=== PATIENT | female | born 2000 | race Caucasian/White ===

== ENCOUNTER → 2020-12-08 16:58 | Outpatient (CLI) | payer OTHER, MEDICAID, SELFPAY ==
[2020-12-08 18:15] LABS: Add Manual Diff / Slide Review NO; Basophils Absolute Auto 0 /uL (0-100); Basophils Percent Auto 0.6 % (0-2); Eosinophils Absolute Auto 0 /uL (0-450); Eosinophils Percent Auto 0.5 % (2-4); Hematocrit 37.9 % (36-46); Hemoglobin 12.6 g/dL (12.0-16.0); Lymphocytes Absolute Auto 1400 /uL (1100-4500); Lymphocytes Percent Auto 28.3 % (25-40); Mean Corpuscular HGB Conc 33.3 % (30-36); Mean Corpuscular Hemoglobin 26.8 PG (26-34); Mean Corpuscular Volume 80.5 fL (80-100); Monocytes Absolute Auto 400 /uL (0-900); Monocytes Percent Auto 7.2 % (3-14); Neutrophils Absolute Auto 3200 /uL (1500-7000); Neutrophils Percent Auto 63.4 % (50-75); Platelet Count 217 X10^3/uL (150-400); Red Blood Cell Count 4.71 X10^6/uL (4.0-5.2); Red Cell Distribution Width 15.2 % (11.6-14.8); White Blood Cell Count 5.1 X10^3/uL (4.5-11.0)
[2020-12-08 18:34] LABS: Alanine Aminotransferase 14 IU/L (<35); Albumin 4.7 g/dL (3.5-5.0); Albumin Globulin Ratio 1.6 (1.0-2.8); Alkaline Phosphatase 80 U/L (38-126); Aspartate Aminotransferase 21 IU/L (14-36); BUN Creatinine Ratio 18.4 (6-22); Bilirubin Total 0.4 mg/dL (0.2-1.3); Blood Urea Nitrogen 14 mg/dL (7-17); Calcium 9.6 mg/dL (8.4-10.2); Carbon Dioxide 23 mmol/L (22-32); Chloride 104 mmol/L (98-107); Estimated Glomerular Filt Rate > 60.0 mL/min (>60); Glucose 77 mg/dL (70-100); HEMOLYSIS < 15 (0-50); Magnesium 1.9 mg/dL (1.6-2.3); Phosphorous 3.9 mg/dL (4.5-5.5); Sodium 137 mmol/L (137-145); Total Protein 7.7 g/dL (6.3-8.2)
[2020-12-08 18:53] LABS: Vitamin D 25 Hydroxy (D3) 31.2 ng/mL (30.0-100.0)
== END ==
PROVIDERS: PCP Family Medicine; Referring Provider Family Medicine; Visit Provider Family Medicine
DX: F50.00 Anorexia nervosa, unspecified (principal)
CPT/HCPCS: 36415; 80053; 82306; 83735; 84100; 84443; 85025

== ENCOUNTER → 2022-07-22 09:08 | Outpatient (CLI) | payer OTHER, MEDICAID, SELFPAY | PROVIDERS: PCP Family Medicine; Visit Provider Physician Assistant | DX: J02.9 Acute pharyngitis, unspecified (principal) | CPT/HCPCS: 87070 ==

== ENCOUNTER → 2022-09-28 15:24 | Outpatient (CLI) | payer OTHER, MEDICAID, SELFPAY | PROVIDERS: PCP Family Medicine; Visit Provider Physician Assistant | DX: R35.0 Frequency of micturition (principal) | CPT/HCPCS: 81002; 87086 ==

== ENCOUNTER → 2022-10-04 12:46 | Outpatient (CLI) | payer OTHER, MEDICAID, SELFPAY ==
[2022-10-04 15:07] LABS: Appearance Urine UA CLEAR; Bilirubin Urine UA NEGATIVE (NEGATIVE); Color Urine UA YELLOW; Glucose Urine UA NEGATIVE (Negative); Ketones Urine UA NEGATIVE (NEGATIVE); Leukocyte Esterase Urine UA TRACE (NEGATIVE); Nitrite Urine UA NEGATIVE (Negative); Occult Blood Urine UA NEGATIVE (Negative); Protein Urine UA TRACE (Negative); Specific Gravity Urine UA 1.025 (1.000-1.035)
[2022-10-04 15:08] LABS: pH Urine UA 5.5 (4.5-8.0)
[2022-10-04 15:16] LABS: Bacteria Urine Few (2-10); Culture Indicated Urine Specimen Cultured; Mucus Urine 2+ (Negative); RBC Urine 1-5/HPF (0-5/HPF); Squamous Epithelial Cell Urine 1-5 /HPF (0-5/HPF); WBC Urine 5-10/HPF (0-5/HPF)
== END ==
PROVIDERS: PCP Family Medicine; Referring Provider Physician Assistant; Visit Provider Physician Assistant
DX: R30.0 Dysuria (principal)
CPT/HCPCS: 81001; 87086

== ENCOUNTER → 2023-08-29 17:15 | Outpatient (CLI) | payer OTHER, SELFPAY ==
[2023-08-29 17:53] LABS: Add Manual Diff / Slide Review NO; Basophils Absolute Auto 0 /uL (0-100); Basophils Percent Auto 0.3 % (0-2); Eosinophils Absolute Auto 0 /uL (0-450); Eosinophils Percent Auto 0.6 % (2-4); Hematocrit 33.1 % (36-46); Hemoglobin 11.3 g/dL (12.0-16.0); Lymphocytes Absolute Auto 1700 /uL (1100-4500); Lymphocytes Percent Auto 24.7 % (25-40); Mean Corpuscular HGB Conc 34.1 % (30-36); Mean Corpuscular Hemoglobin 27.7 PG (26-34); Mean Corpuscular Volume 81.1 fL (80-100); Monocytes Absolute Auto 500 /uL (0-900); Monocytes Percent Auto 7.8 % (3-14); Neutrophils Absolute Auto 4500 /uL (1500-7000); Neutrophils Percent Auto 66.6 % (50-75); Platelet Count 227 X10^3/uL (150-400); Red Blood Cell Count 4.08 X10^6/uL (4.0-5.2); White Blood Cell Count 6.8 X10^3/uL (4.5-11.0)
[2023-08-29 18:02] LABS: Appearance Urine UA CLEAR; Bilirubin Urine UA NEGATIVE (NEGATIVE); Color Urine UA YELLOW; Glucose Urine UA NEGATIVE (Negative); Ketones Urine UA NEGATIVE (NEGATIVE); Leukocyte Esterase Urine UA TRACE (NEGATIVE); Nitrite Urine UA NEGATIVE (Negative); Occult Blood Urine UA NEGATIVE (Negative); Protein Urine UA NEGATIVE (Negative); Urobilinogen Urine UA 0.2 E.U./dL (0.2)
[2023-08-29 18:10] LABS: Bacteria Urine Occasional (0-1); Culture Indicated Urine Cult Not Indicated; RBC Urine 0-1/HPF (0-5/HPF); Squamous Epithelial Cell Urine 0-1 /HPF (0-5/HPF); Urine Volume 10mL (spun); WBC Urine 0-1/HPF (0-5/HPF)
[2023-08-30 15:52] LABS: Hepatitis B Surface Antigen NEGATIVE s/c (NEGATIVE)
[2023-08-30 15:57] LABS: HIV 1 & 2 Ab/Ag 4th Gen Combo NEGATIVE (NEGATIVE); Hep C Virus Ab w/Reflex Quant NEGATIVE s/c (NEGATIVE)
[2023-08-31 03:10] LABS: RPR Screen Non Reactive (Non Reactive)
[2023-08-31 09:50] LABS: Varicella IgG Antibody 305 index (Immune >165)
== END ==
PROVIDERS: PCP Family Medicine; Referring Provider Family Medicine; Visit Provider Family Medicine
DX: Z34.00 Encounter for supervision of normal first pregnancy, unspecified trimester (principal)
CPT/HCPCS: 36415; 80055; 81003; 81015; 86787; 86803; 86850; 86900; 86901; 87086; 87389

== ENCOUNTER → 2023-09-21 16:44 | Outpatient (CLI) | payer OTHER, SELFPAY | PROVIDERS: PCP Family Medicine; Referring Provider Family Medicine; Visit Provider Family Medicine | DX: Z34.02 Encounter for supervision of normal first pregnancy, second trimester (principal) | CPT/HCPCS: 36415 ==

== ENCOUNTER → 2023-11-23 14:43 | Outpatient (CLI) | payer OTHER, SELFPAY ==
--- NOTE | 2023-11-23 14:43 | DI.US.S_ITS ---
PROCEDURE: US OB >= 14 WEEKS FETUS INDICATIONS: 20 wk anatomy scan OUTSIDE/PRIOR DATING DATA: Last menstrual period (LMP): 06/16/2023. LMP-based estimated date of delivery (MOUNA): 03/22/2024. First dating scan (date and location): 08/21/2023. Estimated date of delivery (MOUNA) from first dating scan: 03/22/2024. TECHNIQUE: Real-time scanning was performed of the fetus, with image documentation and biometric measurements. Endovaginal scanning: Not performed COMPARISON: None. FINDINGS: General: A single living intrauterine gestation is present. Presentation: Breech. Placenta: Placental position is fundal , without previa. Amniotic fluid index: 15.3 cm, normal range is 5-24 cm. Single deepest vertical pocket is 4.8 cm. heart rate: 137 beats per minute. Maternal cervical canal: 3.6 cm long. Normal lower limit is 2.5 cm. biometrics: Biparietal diameter: 5.4 cm, 22 weeks 4 days Head circumference: 20.9 cm, 23 weeks 0 days Abdominal circumference: 19.2 cm, 23 weeks 6 days Femur length: 3.8 cm, 22 weeks 0 days Clinically estimated gestational age: 22 weeks 6 days Composite gestational age from present scan: 22 weeks 6 days Estimated weight and percentile: 559 g, 53rd percentile Anatomic survey: Neuro: Ventricles are non-dilated at less than 10 mm. Cisterna magna is normal at 3-11 mm. Cerebellum is normal in size and morphology. Nuchal skin fold: Normal at less than 6 mm between 14-21 weeks gestational age. Face: Nose and lips, facial profile are normal. Spine: No evidence for spina bifida. Heart: 4-chambered heart is present, with normal ventricular outflow tracts. Diaphragm: Diaphragm is intact. Stomach: Left-sided stomach is present. Kidneys: No hydronephrosis. Normal is less than 5 mm in 2nd trimester, less than 7 mm in 3rd trimester. Cord: 3-vessel cord has orthotopic insertion. Bladder: Normal in size. Extremities: All 4 extremities identified. IMPRESSION: Single living intrauterine at 22 weeks 6 days, MOUNA 03/22/2024. Estimated weight of 559 g, 53rd percentile. Normal anatomy survey. We strive to produce accurate, complete, and clear reports of imaging services. To assist us in improving patient care, this report was composed using standard report templates and voice recognition software. Therefore, it may contain abnormal punctuation, insertions and/or omissions. Occasional wrong-word or sound-alike substitutions may occur. Though we review the report and make efforts to correct it, we do recommend that the report be read carefully in proper context to recognize any text inaccuracies. Dictated by: Noe Hawk M.D. on 11/23/2023 at 16:53 Approved by: Noe Hawk M.D. on 11/23/2023 at 16:55
== END ==
PROVIDERS: PCP Family Medicine; Referring Provider Family Medicine; Visit Provider Family Medicine
DX: Z34.02 Encounter for supervision of normal first pregnancy, second trimester (principal); Z3A.22 22 weeks gestation of pregnancy
CPT/HCPCS: 76811

== ENCOUNTER → 2023-12-08 11:11 | Outpatient (CLI) | payer OTHER, SELFPAY ==
[2023-12-08 12:35] LABS: Add Manual Diff / Slide Review NO; Basophils Absolute Auto 0 /uL (0-100); Basophils Percent Auto 0.1 % (0-2); Eosinophils Absolute Auto 0 /uL (0-450); Eosinophils Percent Auto 0.3 % (2-4); Hematocrit 28.3 % (36-46); Hemoglobin 9.5 g/dL (12.0-16.0); Lymphocytes Absolute Auto 1000 /uL (1100-4500); Lymphocytes Percent Auto 12.9 % (25-40); Mean Corpuscular HGB Conc 33.7 % (30-36); Mean Corpuscular Hemoglobin 26.8 PG (26-34); Mean Corpuscular Volume 79.7 fL (80-100); Monocytes Absolute Auto 300 /uL (0-900); Monocytes Percent Auto 4.3 % (3-14); Neutrophils Absolute Auto 6500 /uL (1500-7000); Neutrophils Percent Auto 82.4 % (50-75); Platelet Count 216 X10^3/uL (150-400); Red Blood Cell Count 3.56 X10^6/uL (4.0-5.2); Red Cell Distribution Width 13.7 % (11.6-14.8); White Blood Cell Count 7.9 X10^3/uL (4.5-11.0)
[2023-12-08 12:49] LABS: GTT (PREG) 1 Hour PP 50gm Dose 135 mg/dL (76-139)
== END ==
PROVIDERS: PCP Family Medicine; Referring Provider Family Medicine; Visit Provider Family Medicine
DX: Z34.90 Encounter for supervision of normal pregnancy, unspecified, unspecified trimester (principal); Z3A.28 28 weeks gestation of pregnancy
CPT/HCPCS: 36415; 82950; 85025

== ENCOUNTER → 2024-02-21 08:45 | Outpatient (CLI) | payer OTHER, SELFPAY ==
[2024-02-22 10:38] LABS: Strep Grp B PCR NEG for Grp B Strep
== END ==
PROVIDERS: PCP Family Medicine; Visit Provider Family Medicine
DX: Z34.03 Encounter for supervision of normal first pregnancy, third trimester (principal); Z36.85 Encounter for antenatal screening for Streptococcus B; Z3A.36 36 weeks gestation of pregnancy
CPT/HCPCS: 87653

== ENCOUNTER 2024-03-08 14:53 | Inpatient (IN) | payer OTHER, SELFPAY ==
--- NOTE | 2024-03-08 15:20 | DI.US.S_ITS ---
PROCEDURE: US OB LIMITED INDICATIONS: non reactive NST OUTSIDE/PRIOR DATING DATA: Last menstrual period (LMP): 06/16/2023. LMP-based estimated date of delivery (MOUNA): 03/22/2024. First dating scan (date and location): 08/21/2023. Estimated date of delivery (MOUNA) from first dating scan: 03/22/2024. The calculations are made using the working MOUNA of 03/22/2024. TECHNIQUE: Real-time scanning was performed of the fetus, with image documentation. Endovaginal scanning: No COMPARISON: None. FINDINGS: A single living intrauterine gestation is present. Presentation: Vertex. Placenta: Placental position is posterior, without previa. Amniotic fluid index: 10.7 cm, normal range is 5-24 cm. Single deepest vertical pocket is 3.9 cm. heart rate: 140 beats per minute. Maternal cervical canal: Nonvisualized Clinically estimated gestational age: 38 week 0 day Estimated gestational age from initial scan: 38 week 0 day Biophysical profile score: tone, movement and amniotic fluid pockets are all graded 2 out of 2. Respiratory motion grade 0 out of 2. No respiratory motion was observed during the exam . IMPRESSION: Single live intrauterine consistent with 38 week 0 day gestation. Biophysical profile score 6 out of 8 Approved by: Torsten Astorga M.D. on 03/08/2024 at 16:45
[2024-03-08 15:42] LABS: Add Manual Diff / Slide Review NO; Basophils Absolute Auto 0 /uL (0-100); Basophils Percent Auto 0.4 % (0-2); Eosinophils Absolute Auto 0 /uL (0-450); Eosinophils Percent Auto 0.3 % (2-4); Hematocrit 34.2 % (36-46); Lymphocytes Absolute Auto 1300 /uL (1100-4500); Lymphocytes Percent Auto 18.2 % (25-40); Mean Corpuscular HGB Conc 32.3 % (30-36); Mean Corpuscular Hemoglobin 24.9 PG (26-34); Mean Corpuscular Volume 77.2 fL (80-100); Monocytes Absolute Auto 700 /uL (0-900); Monocytes Percent Auto 9.6 % (3-14); Neutrophils Absolute Auto 5000 /uL (1500-7000); Neutrophils Percent Auto 71.5 % (50-75); Platelet Count 237 X10^3/uL (150-400); Red Blood Cell Count 4.43 X10^6/uL (4.0-5.2); Red Cell Distribution Width 17.2 % (11.6-14.8)
--- NOTE | 2024-03-08 16:38 | PM.OBHP.IH.1 ---
OB HPI Date/Time Date of admission: 03/08/24 Date Patient Seen: 03/08/24 History of Present Condition Chief complaint: NST Date of Last Menstrual Period: 06/16/23 MOUNA Calculator Estimated Delivery Date Method Current WG Current Estimate 03/22/24 LMP (Certain) 38w 0d Estimated Gestational Age (weeks): 38+0 : 1 Para: 0 Narrative: 23-year-old at [place] 38+0 weeks presenting for decreased movement. Woke up feeling nauseous with intermittent hot flashes this morning. Last filled baby move around 8:30 a.m. had breakfast including eggs around 930. Called triage line and was advised to drink some juice, rest, and performed kick counts. Did not notice significant movement after 1 hour so proceeded to L & D for further evaluation. Denies vaginal bleeding or leakage of fluid. Antepartum course notable for congenital encephalocele (surgically repaired age 1), anemia (on p.o. iron), anxiety (on fluoxetine and buspirone). care: good care Dating criteria OB: LMP confirmed by 1st trimester US Ultrasounds: normal 1st trimester US and normal mid trimester US Obstetrical complications: none Medical complications OB: psychiatric (anxiety) and other (anemia) Indications Operative indications ( section): distress (decreased FM, nrFHT w/recurrent late decelerations on NST) Preadmission Labs Last OB Lab Results: Blood Type AB Positive 03/08/24 15:30 Antibody Screen Negative 03/08/24 15:30 Hct 34.2 % (36-46) L 03/08/24 15:30 Hgb 11.0 g/dL (12.0-16.0) L 03/08/24 15:30 Hep Bs Antigen Negative s/c (NEGATIVE) 08/29/23 17:24 Hepatitis C Antibody Negative s/c (NEGATIVE) 08/29/23 17:24 Rubella Antibody 15.0 IU/mL (>15) 08/29/23 17:24 VZV IgG Antibody 305 index (Immune >165) 08/29/23 17:24 Glucose 1 Hr 50 gm 135 mg/dL (76-139) 12/08/23 11:25 Group B Strep (PCR) Neg for grp b strep 02/21/24 08:45 Genetic Screens: Cell-free DNA: Normal Evaluation Evaluation Baseline heart rate: 135 Variability: Minimal (3-5) monitor accelerations: Absent Monitor Decelerations: Late Contraction Frequency (minutes): 3 Uterine Contraction Intensity: Mild Category of Tracing: Non-reactive Status: Category ll Dilation (cm): 0 Effacement (%): 40 station: -1 Position of cervix: posterior Comments: Exam per L&D RN [facility] Medical History (Updated 12/14/23 @ 16:18 by Tevin Ya MD) Strabismus (00) Molluscum contagiosum Encephalocele Anorexia nervosa Surgical History (Updated 07/25/23 @ 15:38 by Jessenia Hernandez RN) [place] teeth extracted History of eye surgery Family History (Updated 07/25/23 @ 15:42 by Jessenia Hernandez RN) Father Type II diabetes mellitus Mother Skin cancer Grandmother Traumatic brain injury Uncle Alcoholism Aunt Drug abuse Sepsis Social History marital status: unmarried,living together number of children: 0 household members: significant other and family lives independently: Yes caregiver/support person: No housing: house pets and animals: Yes (2 dogs, 1 cat; aware of precautions) education level: college occupational status: employed current occupational exposures/hazards: No special tommie needs: No travel history: recent seatbelt use: always water heater temp set < 120 deg: Yes working smoke detector in home: Yes fire extinguisher in home: Yes carbon monox detector in home: Yes firearms in home: No do you feel safe at home: Yes Smoking Status: Never smoker second hand exposure: No alcohol intake: former substance use type: does not use during the past year weight has: remained stable well-balanced diet: about half the time daily servings fruits/ve-4 caffeine: Yes (AM coffee, aware of 200mg limit) Type(s) of exercise: other Meds Home Medications and Allergies Home Medications Medication Instructions Recorded Confirmed Type buspirone 10 mg tablet 10 mg PO BID #60 tabs 03/06/23 02/21/24 Rx vitamin-ferrous sulfate tab PO 07/25/23 02/21/24 History 27 mg iron-folic acid 0.8 mg tablet folic acid 1 mg tablet 4 mg (4 x 1 mg) PO DAILY #120 tabs 07/30/23 02/21/24 Rx ferrous sulfate 325 mg (65 mg 325 mg PO DAILY #30 tabs 12/14/23 02/21/24 Rx iron) tablet,delayed release fluoxetine 20 mg capsule 20 mg PO DAILY #30 caps 02/14/24 02/21/24 Rx Allergies Allergy/AdvReac Type Severity Reaction Status Date / Time cranberry Allergy Intermediate Rash Verified 02/27/24 07:54 grapefruit [GRAPEFRUIT] Allergy Intermediate rash Verified 02/27/24 07:54 OB Exam Narrative Exam Narrative: General: Well-nourished, no distress HEENT: NC/AT, EOMI, moist mucous membranes CV: RRR, normal S1 S2, no m/g/r Resp: CTAB Abd: Gravid, soft, NTND, +BS Ext: Full ROM, no edema Skin: No rash or lesions Neuro: A&O x3, normal tone, no focal deficits Objective Labs 03/08/24 15:30 Labs: Laboratory Results - last 24 hr 03/08/24 15:30 WBC 7.0 RBC 4.43 Hgb 11.0 L Hct 34.2 L MCV 77.2 L MCH 24.9 L MCHC 32.3 RDW 17.2 H Plt Count 237 Neut % (Auto) 71.5 Lymph % (Auto) 18.2 L [place] % (Auto) 9.6 Eos % (Auto) 0.3 L Baso % (Auto) 0.4 Neut # (Auto) 5000 Lymph # (Auto) 1300 [place] # (Auto) 700 Eos # (Auto) 0 Baso # (Auto) 0 Blood Type AB Positive Antibody Screen Negative Assessment and Plan Assessment and Plan Assessment and Plan narrative: 23-year-old at [place] 38+0 weeks presenting for decreased movement. BPP equivocal (09/09, points off for breathing and non-reactive NST). Given term gestation and nrFHT/equivocal BPP with pt remote from delivery, it was recommended to deliver baby today via rather than risk complication by waiting or attempting IOL. -admit to L&D -consented for delivery -PPH risk low -SCDs with spinal Consent form for section was reviewed with the patient. Risk of reaction to medication or anesthesia, risk of bleeding enough to require blood transfusion which she is agreeable to, risk of infection, risk of damage to internal structures such as bowel, bladder, ureters that could require additional surgery to repair. Consent form signed and questions answered. Pre-op instructions reviewed. Precautions reviewed. Time-Based Coding :: 30 minutes spent with patient and on the chart (including review of chart, obtaining history, exam, reviewing outside data, placing orders, documenting exam and treatment plan, and counseling patient) on 03/08/2024.
[2024-03-08 17:37] VITALS: BP 128/79
[2024-03-08] MEDS: CEFAZOLIN 2 GM/100 ML PREMIX 100 ML IV (17:42)
--- NOTE | 2024-03-08 17:55 | SUR.OPER ---
Supine on Padded OR bed, head on pillow, safety belt at thigh, arms secured on padded arm boards at <90 degrees abduction. Bump under right buttock. Legs uncrossed with pillow under knees, gel pad to heels, tape over blanket to lower legs.
[2024-03-08] MEDS: OXYTOCIN PREMIX 30 UNIT/500 ML PLAST..BAG IV (17:59)
[2024-03-08] MEDS: OXYTOCIN 10 UNIT/ML VIAL IM (18:12)
[2024-03-08 18:44] VITALS: BP 105/67; PULSE 58; RESP 12; TEMP 35.9; O2SAT 100
[2024-03-08 18:49] VITALS: BP 105/68; PULSE 57; RESP 17; O2SAT 100
[2024-03-08 18:56] VITALS: BP 107/72; PULSE 60; RESP 12; O2SAT 100
[2024-03-08] MEDS: ACETAMINOPHEN IV 1,000 MG/100 ML VIAL 400 MG IV (18:57)
[2024-03-08] MEDS: ONDANSETRON 4 MG/2 ML INJ IV (18:57)
[2024-03-08 19:01] VITALS: BP 100/66; PULSE 57; RESP 10; TEMP 35.9; O2SAT 100
--- NOTE | 2024-03-08 19:44 | PM.OBCS.1 ---
Operative Date/Time/Diagnoses Date of procedure: 03/08/24 Pre-op diagnosis: Term , non-reassuring heart tracing Post-op diagnosis: same (delivered) Procedure & Clinicians Procedure: Primary low transverse section Same procedure as scheduled: Yes Indications: Non-reassuring heart tracing remote from delivery Surgeon: Tevin Ya Click Yes if Unassisted: No Financial Project Manager: Rica Meza Reason for Financial Project Manager: Financial Project Manager required for the safe, effective, and timely completion of this surgery. The home care assistant was necessary to retract upon entry into the abdomen and uterus. Assisted with delivery of the with fundal pressure. Assisted with closure with retraction, clipping of suture, and closure of the contralateral fascia. Anesthesia Type: Spinal Operative Notes Findings: Viable male infant in cephalic presentation Closure Type: primary Specimen(s): cord blood Intraoperative meds administered: Duramorph, Ketorolac and Pitocin Estimated Blood Loss (mL): 800 Blood products transfused: none Procedure in detail: Patient was taken to the operating room where spinal anesthesia was found to be adequate. She was then prepared and draped in the usual sterile fashion in the dorsal supine position with a leftward tilt. A Pfannenstiel incision was then made with a scalpel and carried through to the underlying layer of fascia sharply. The fascia was nicked in the midline, and the incision extended laterally with Quach scissors. The superior aspect of the fascial incision was then grasped with Caleb clamps, elevated, and the underlying rectus muscles dissected off bluntly. Attention was then turned to the inferior aspect of the incision which, in similar fashion, was grasped, tented up with Caleb clamps, and rectus muscles dissected off bluntly. The rectus muscles were then in the midline, and peritoneum identified, tented up, and entered bluntly. The peritoneal opening was then extended superiorly and inferiorly with good visualization of the bladder. The bladder blade was then inserted and the lower uterine segment incised in a transverse fashion with the scalpel. The uterine incision was then extended laterally with blunt traction. Upon entering the amniotic sac there was moderate amount of meconium-stained amniotic fluid. The bladder blade was removed and the head delivered atraumatically. The nose and mouth were suctioned with bulb suction, and the remainder of the body delivered without difficulty. The cord was clamped and cut, and the infant was handed off to the waiting care team. Cord blood was collected and sent. The placenta was then removed by manual expression; the uterus was exteriorized and cleared of all clots and debris. The uterine incision was repaired with 0 Vicryl in a running, locked fashion. A second layer of same suture was used to obtain excellent hemostasis. Tubes and ovaries were examined and were found to be normal, and the uterus returned to the abdomen. The fascia was reapproximated with 0 Vicryl in a running fashion. The subcutaneous layer was copiously irrigated with warm normal saline. The subcutaneous fat was reapproximated with 3-0 Vicryl. The skin was closed with 3-0 Monocryl. Steri-Strips were applied to the incision and a pressure dressing was placed. The uterus was expressed of a small amount of old blood. Sponge, lap, and needle counts were correct x2. The patient tolerated the procedure well and was taken to the recovery room in stable condition. Complications: none [place] Baby 1: Delivery Date: 03/08/24 Delivery Time: 17:58 Infant Gender: Male Presentation: vertex Position: Right Occiput Transverse Details: back down Placental Delivery Description: Expressed Cord Vessel Description: 3 Vessels score (1 min): 2 score (5 min): 5 score (10 min): 7 weight: 6 lb 9.116 oz Post-operative Condition: stable Disposition: PACU Aftercare: routine postop
[2024-03-08] MEDS: diphenhydrAMINE 50 MG/ML VIAL 25 MG IV (22:19)
[2024-03-09] MEDS: KETOROLAC 30 MG/ML VIAL IV ×3 (00:33→12:39)
[2024-03-09 05:40] LABS: Add Manual Diff / Slide Review NO; Basophils Absolute Auto 0 /uL (0-100); Basophils Percent Auto 0.1 % (0-2); Eosinophils Absolute Auto 0 /uL (0-450); Hematocrit 29.9 % (36-46); Hemoglobin 9.8 g/dL (12.0-16.0); Lymphocytes Absolute Auto 700 /uL (1100-4500); Lymphocytes Percent Auto 5.7 % (25-40); Mean Corpuscular HGB Conc 32.9 % (30-36); Mean Corpuscular Hemoglobin 25.3 PG (26-34); Monocytes Absolute Auto 500 /uL (0-900); Monocytes Percent Auto 4.3 % (3-14); Neutrophils Absolute Auto 10700 /uL (1500-7000); Neutrophils Percent Auto 89.9 % (50-75); Platelet Count 233 X10^3/uL (150-400); Red Blood Cell Count 3.88 X10^6/uL (4.0-5.2); Red Cell Distribution Width 16.6 % (11.6-14.8); White Blood Cell Count 11.9 X10^3/uL (4.5-11.0)
[2024-03-09] MEDS: PRENATAL VIT,CALC/IRON/FOLIC 1 TABLET 1 TAB PO (09:20)
--- NOTE | 2024-03-09 12:55 | P.PNOB_ITS ---
Subjective - OB Subjective Patient comments: no complaints, pain well controlled and tolerating diet baby status: doing well and nursing well feeding status: exclusively breast feeding Date Patient Seen: 03/09/24 Time Patient Seen: 12:56 Exam Vital Signs (past 8 hours): Oxygen Delivery Method Room Air Narrative Exam Narrative: General: Well-appearing, well-nourished, no distress HEENT: Moist mucous membranes, no pallor CV: Regular rate and rhythm, no murmur auscultated Resp: CTAB, comfortable work of breathing Abdomen: Soft, bowel sounds present, fundus firm below umbilicus with appropriate tenderness, incision c/d/i Extremities: No edema, no calf tenderness or evidence of DVT Objective Labs 03/09/24 05:25 Labs: Laboratory Results - last 24 hr 03/08/24 03/09/24 15:30 05:25 WBC 7.0 11.9 H D RBC 4.43 3.88 L Hgb 11.0 L 9.8 L Hct 34.2 L 29.9 L MCV 77.2 L 77.0 L MCH 24.9 L 25.3 L MCHC 32.3 32.9 RDW 17.2 H 16.6 H Plt Count 237 233 Neut % (Auto) 71.5 89.9 H Lymph % (Auto) 18.2 L 5.7 L [place] % (Auto) 9.6 4.3 Eos % (Auto) 0.3 L 0.0 L Baso % (Auto) 0.4 0.1 Neut # (Auto) 5000 36176 H Lymph # (Auto) 1300 700 L [place] # (Auto) 700 500 Eos # (Auto) 0 0 Baso # (Auto) 0 0 Blood Type AB Positive Antibody Screen Negative Assessment & Plan Assessment and Plan (1) delivery delivered: Status: Acute (2) Anemia affecting : Status: Acute Plan day: 1 plan OB: routine postop care Comments: POD #1 s/p pLTCS Clinically stable, recovering well Start p.o. iron supplement for anemia Pain management as needed support s/p consult Encourage ambulation, flatus/BM prior to discharge Bleeding normal for course, monitor Likely discharge home POD #2 Time-Based Coding :: 20 minutes spent with patient and on the chart (including review of chart, obtaining history, exam, reviewing outside data, placing orders, documenting exam and treatment plan, and counseling patient) on 03/09/2024.
[2024-03-09] MEDS: IBUPROFEN 600 MG TABLET PO (19:18)
--- NOTE | 2024-03-09 22:25 | PM.OBDS.1 ---
Discharge Providers Provider Date of admission: 03/08/24 14:53 Discharge Date: 03/09/24 Primary care physician: Tevin Ya MD Consults: 03/08/24 19:14 Consult to Instructor Tap Dancing Routine Comment: Discharge provider: Tevin Ya MD Summary Hospital Course Date Patient Seen: 03/09/24 Time Patient Seen: 22:29 Diagnoses: #term #non-reassuring heart tracing # delivery delivered # mother Hospital Course: Admitted for urgent due to decreased movement and non-reassuring heart tracing on 03/08/2024. She had an uncomplicated CS of a live male . Her course was uncomplicated. She was discharged early due to requiring transfer higher level of care for persistent hypoglycemia and desire to travel with . At discharge patient is ambulating well, tolerating normal diet, breast-feeding with some difficulty due to uncoordinated suck, and pain is adequately controlled. She reports bleeding is similar to normal menses. Peripartum Data Infant Delivery Method: Emergency Section complications: none 1: Gender: Male Disposition of : NICU Discharge Diagnosis (1) delivery delivered: Status: Acute (2) Anemia affecting : Status: Acute (3) Anxiety during : Status: Acute Status at Discharge Cognitive/behavioral status at discharge: oriented Functional status at discharge: independent ambulation Overall status at discharge: patient is progressing back to baseline Time Spent with Patient Time attestation: Total time spent providing and/or coordinating discharge services: 20 minutes Objective Labs 03/09/24 05:25 Labs: Laboratory Results - last 24 hr 03/09/24 05:25 WBC 11.9 H D RBC 3.88 L Hgb 9.8 L Hct 29.9 L MCV 77.0 L MCH 25.3 L MCHC 32.9 RDW 16.6 H Plt Count 233 Neut % (Auto) 89.9 H Lymph % (Auto) 5.7 L [place] % (Auto) 4.3 Eos % (Auto) 0.0 L Baso % (Auto) 0.1 Neut # (Auto) 14921 H Lymph # (Auto) 700 L [place] # (Auto) 500 Eos # (Auto) 0 Baso # (Auto) 0 Exam Vital Signs (past 8 hours): Oxygen Delivery Method Room Air Narrative Exam Narrative: General: Well-appearing, well-nourished, no distress HEENT: Moist mucous membranes, no pallor CV: Regular rate and rhythm, no murmur auscultated Resp: CTAB, comfortable work of breathing Abdomen: Soft, bowel sounds present, fundus firm below umbilicus with appropriate tenderness, incision c/d/i Extremities: No edema, no calf tenderness or evidence of DVT Discharge Plan Discharge Plan Patient Disposition: Home Provider Discharge Comment: Follow-up in 1 week for incision check Discharge orders & Medications Prescriptions: New acetaminophen 325 mg capsule 650 mg PO Q6H PRN (Reason: pain) Qty: 90 1RF ibuprofen 600 mg Tablet 600 mg PO Q6H PRN (Reason: pain) Qty: 60 1RF oxycodone 5 mg Tablet 5 mg PO Q6H PRN (Reason: Pain, Moderate (4-6)) Qty: 15 0RF polyethylene glycol 3350 17 gram/dose powder 17 g PO DAILY Qty: 510 1RF Continued ferrous sulfate 325 mg (65 mg iron) tablet,delayed release (DR/EC) 325 mg PO DAILY Qty: 30 3RF fluoxetine 20 mg capsule 20 mg PO DAILY Qty: 30 3RF buspirone 10 mg tablet 10 mg PO BID Qty: 60 1RF folic acid 1 mg tablet 4 mg PO DAILY Qty: 120 5RF vit-ferrous sulfat-FA 27 mg iron- 0.8 mg tablet PO Follow up/Referrals: Tevin Ya MD [Primary Care Provider] - Visit Report/Discharge Packet Instructions: DI for Hemorrhage Stand Alone Forms: Discharge: Care, Discharge: Care, Patient Portal/API, Stroke Signs & Symptoms Discharge Data Primary Care Provider: Tevin Ya
== END 2024-03-09 23:52 | disposition home or self-care (01) | DRG 788 ==
PROVIDERS: Obstetrics & Gynecology; Admitting Provider Family Medicine; PCP Family Medicine; Referring Provider Family Medicine; Visit Provider Family Medicine
PROC: 10D00Z1 Extraction of Products of Conception, Low, Open Approach (ICD-10-PCS; CPT 59514; principal; 2024-03-08 16:45)
DX: O76 Abnormality in fetal heart rate and rhythm complicating labor and delivery (principal); Z3A.38 38 weeks gestation of pregnancy; Z37.0 Single live birth
CPT/HCPCS: 36415; 59025; 59050; 59510; 59514; 76815; 76819; 85025; 86850; 86900; 86901; 96360; G0379; J0134; J0690; J1100; J1200; J1885; J2274; J2405; J2590; J3010

== ENCOUNTER → 2024-05-02 16:04 | Outpatient (CLI) | payer OTHER, SELFPAY ==
[2024-05-02 17:29] LABS: Hemoglobin A1C% w Est Avg Glu 4.9 % (4.0-6.0)
[2024-05-02 17:35] LABS: Add Manual Diff / Slide Review NO; Basophils Absolute Auto 0 /uL (0-100); Basophils Percent Auto 0.8 % (0-2); Eosinophils Absolute Auto 0 /uL (0-450); Eosinophils Percent Auto 0.8 % (2-4); Hemoglobin 12.4 g/dL (12.0-16.0); Lymphocytes Absolute Auto 1400 /uL (1100-4500); Lymphocytes Percent Auto 26.3 % (25-40); Mean Corpuscular HGB Conc 32.7 % (30-36); Mean Corpuscular Volume 79.5 fL (80-100); Monocytes Absolute Auto 500 /uL (0-900); Monocytes Percent Auto 9.2 % (3-14); Neutrophils Absolute Auto 3300 /uL (1500-7000); Neutrophils Percent Auto 62.9 % (50-75); Platelet Count 288 X10^3/uL (150-400); Red Blood Cell Count 4.78 X10^6/uL (4.0-5.2); White Blood Cell Count 5.2 X10^3/uL (4.5-11.0)
[2024-05-02 18:28] LABS: HEMOLYSIS < 15 (0-50); Iron 37 ug/dL (37-170)
[2024-05-02 18:30] LABS: BUN Creatinine Ratio 13.4 (6-22); Blood Urea Nitrogen 11 mg/dL (7-17); Calcium 9.7 mg/dL (8.4-10.2); Carbon Dioxide 25 mmol/L (22-32); Chloride 103 mmol/L (98-107); Estimated Glomerular Filt Rate > 60 mL/min (>60); Glucose 98 mg/dL (70-100); HEMOLYSIS < 15 (0-50); Potassium 4.1 mmol/L (3.4-5.1); Sodium 137 mmol/L (137-145)
[2024-05-02 18:38] LABS: Percent Iron Saturation 11 % (15-50); Total Iron Binding Capacity 341 ug/dL (265-497); Transferrin 323 mg/dL (206-381)
[2024-05-02 19:00] LABS: TSH w/ Reflex to FT4 2.67 uIU/mL (0.47-4.68)
[2024-05-02 19:05] LABS: Ferritin 6 ng/mL (6-137)
== END ==
LOC: LAB 16:05
PROVIDERS: PCP Family Medicine; Referring Provider Family Medicine; Visit Provider Family Medicine
DX: R42 Dizziness and giddiness (principal); D64.9 Anemia, unspecified
CPT/HCPCS: 36415; 80048; 82728; 83036; 83540; 83550; 84443; 85025